=== PATIENT | male | born 1965 ===

== ENCOUNTER 2016-04-04 10:13 | Inpatient (IN) | payer SELFPAY ==
[2016-04-04] MEDS ORDERED: PROPOFOL/EMULSION 1,000 MG/100 ML BOTTLE IV ONE (13:29)
[2016-04-04] MEDS: fentaNYL/NACL 100 ML IV SCH (13:40)
[2016-04-04] MEDS: PROPOFOL/EMULSION 100 ML IV SCH ×4 (13:40→23:35)
[2016-04-04] MEDS ORDERED: fentanYL/NACL/100 ML BAG IV ONE (13:45)
[2016-04-04] MEDS ORDERED: HALOPERIDOL LACT 5 MG/ML INJ IVP PRN (13:55)
[2016-04-04] MEDS ORDERED: LORazepam 2 MG/ML INJ IVP PRN (13:55)
[2016-04-04] MEDS ORDERED: ENOXAPARIN 40 MG/0.4 ML SYR SC SCH (14:00)
[2016-04-04] MEDS: NS 1,000 ML IV SCH (14:00)
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
[2016-04-04] MEDS ORDERED: ONDANSETRON 4 MG/2 ML VIAL IVP PRN (14:47)
[2016-04-04] MEDS ORDERED: ACETAMINOPHEN 325 MG TAB PO PRN (14:47)
[2016-04-04] MEDS ORDERED: ENOXAPARIN 40 MG/0.4 ML SYR SC ONE (15:52)
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
[2016-04-04 18:35] LABS: COLOR YELLOW; LEUKOCYTE ESTERASE,URINE NEGATIVE (NEGATIVE); NITRITE,URINE NEGATIVE (NEGATIVE)
[2016-04-04 19:50] LABS: BASE EXCESS -1.7 mEq/L (-2.5-2.5); BICARBONATE 24 mEq/L (22-26); MEASURED OXYGEN SATURATION 93 % (92-95); PCO2 46 mmHg (34-38); PO2 72 mmHg (65-75); TCO2 25 mEq/L (23-27)
[2016-04-04 19:52] LABS: END TIDAL CO2 41; O2 CONCENTRATIION 25 % (0-100); P/F RATIO 288 RATIO; PATIENT RATE 15; PRESSURE SUPPORT 5; SIMV YES
[2016-04-04] MEDS: CHLORHEXIDINE GLUCONATE 15 ML UDL PO SCH (21:05)
[2016-04-04] MEDS: FAMOTIDINE 20 MG/NACL 50 ML IV SCH (21:05)
[2016-04-05] MEDS: PROPOFOL/EMULSION 100 ML IV SCH (03:40)
[2016-04-05] MEDS: NS 1,000 ML IV SCH ×2 (03:40→13:58)
[2016-04-05] MEDS: fentaNYL/NACL 100 ML IV SCH (03:40)
[2016-04-05 04:12] LABS: % IMMATURE GRANULYOCYTES 0.2 % (0.0-1.1); ABSOLUTE IMMATURE GRANULOCYTES 0.01 10^3/uL (0.00-0.10); ADD DIFF? NO; ADD MORPH? NO; ADD SCAN? NO; ATYPICAL LYMPHOCYTE FLAG 0 (0-99); FRAGMENT RBC FLAG 0 (0-99); HEMATOCRIT 38.2 % (40.0-51.0); HEMOGLOBIN 11.5 g/dL (13.7-17.5); LEFT SHIFT FLG 0 (0-99); LIPEMIA HEMOLYSIS FLAG 80 (0-99); MEAN CELL HEMOGLOBIN 24.2 pg (27.9-34.1); MEAN CELL HEMOGLOBIN CONCENTR. 30.1 g/dL (32.4-36.7); MEAN CELL VOLUME 80.3 fL (81.5-99.8); PLATELET CLUMPS FLAG 0 (0-99); PLATELET COUNT 134 10^3/uL (150-400); RED BLOOD CELL COUNT 4.76 10^6/uL (4.40-6.38); RED CELL DISTRIBUTION WIDTH 12.5 % (11.5-15.2)
[2016-04-05 04:23] LABS: BICARBONATE 23 mEq/L (22-26); MEASURED OXYGEN SATURATION 95 % (92-95); PCO2 40 mmHg (34-38); PO2 73 mmHg (65-75); TCO2 25 mEq/L (23-27)
[2016-04-05 04:24] LABS: END TIDAL CO2 33; O2 CONCENTRATIION 25 % (0-100); P/F RATIO 292 RATIO; SIMV YES
[2016-04-05 04:25] LABS: PATIENT RATE 14; PRESSURE SUPPORT 5
[2016-04-05 04:25] LABS: INR 1.14 (0.83-1.16); PROTIME(PATIENT) 14.5 SEC (12.0-15.0)
[2016-04-05 04:29] LABS: ALANINE AMINOTRANSFERASE 44 IU/L (21-72); ALBUMIN 3.2 g/dL (3.5-5.0); ALKALINE PHOSPHATASE 64 IU/L (38-126); ANION GAP 5 mEq/L (8-16); ASPARTATE AMINOTRANSFERASE 55 IU/L (17-59); BILIRUBIN,TOTAL 0.9 mg/dL (0.1-1.4); BILIRUBIN-CONJUGATED 0.6 mg/dL (0.0-0.5); BILIRUBIN-UNCONJUGATED 0.3 mg/dL (0.0-1.1); CALCIUM 8.2 mg/dL (8.5-10.4); CARBON DIOXIDE 27 mEq/l (22-31); CHLORIDE 111 mEq/L (97-110); CREATININE 1.1 mg/dL (0.7-1.3); GLOMERULAR FILTRATION RATE > 60; GLUCOSE 85 mg/dL (70-100); MAGNESIUM 2.1 mg/dL (1.6-2.3); POTASSIUM 3.8 mEq/L (3.5-5.2); SODIUM 143 mEq/L (134-144); TOTAL PROTEIN 6.3 g/dL (6.3-8.2)
[2016-04-05 05:41] LABS: CK-MB INTERPRETATION NEGATIVE (NEGATIVE)
--- NOTE | 2016-04-05 08:25 | PDINTPN ---
Contact Center Team Lead Progress Note Assessment/Plan: Assessment: * respiratory failure with hypoxia * altered mental status with violent behavior * sedation * dvt prophylaxis * gi prophylaxis * nutrition * Plan: * respiratory failure with hypoxia- stable on SIMV with minimal support. If mental status clears, he should extubate without difficulty. Titrate sedation then wean on 5/5 for 30 min as tolerated. * altered mental status- not clear source, tox screen, LP, head CT all negative. BAL normal. Unclear if underlying psych d/o * sedation- dc fentanyl, add precedex and wean propofol as tolerated. * dvt- scds in place * GI- PPI * 04/05/16 04/05/16 08:28 Objective: Vital Signs Temp Pulse Resp BP Pulse Ox 38.4 C H 89 10 L 120/69 99 04/05/16 07:00 04/05/16 07:00 04/05/16 07:00 04/05/16 07:00 04/05/16 07:00 Laboratory Results 04/05/16 04:00 04/05/16 04:00 04/04/16 04/05/16 04/06/16 05:59 05:59 05:59 Intake Total 1898 Output Total 1350 Balance 548 PT 14.5 SEC (12.0-15.0) 04/05/16 04:00 INR 1.14 (0.83-1.16) 04/05/16 04:00 - Time Spent With Patient Time Spent With Patient: critical care time 30 minutes from [id number] Physical Exam - Physical Exam General Appearance: WD/WN, no apparent distress, No alert (sedated) EENT: ET tube, other (pinpoint pupils) Neck: supple, normal inspection Respiratory: lungs clear Cardiac/Chest: regular rate, rhythm Peripheral Pulses: 2+: dorsalis-pedis (R), dorsalis-pedis (L) Abdomen: normal bowel sounds, non-tender, soft Skin: normal color, warm/dry Lymphatic: no adenopathy Extremities: non-tender, normal inspection Neuro/Psych: no motor/sensory deficits, other (seadted) ICD10 Worksheet Patient Problems: Problems Problem Status Diagnosed Altered mental status Acute - ICD10 Problem Qualifiers (1) Altered mental status
--- NOTE | 2016-04-05 08:39 | DX ---
Portable Chest, Single View 6:10 AM Indication: Intubated. Comparison: None. Findings: The ET tube is well-positioned with the tip 4.5 cm superior to the bernarda. Esophagogastric tube is present with the tip extending off the inferior margin of the film into the stomach. Lungs ar e clear except for minimal bibasilar atelectasis. No pneumothorax, edema, or confluent consolidation. Heart size normal. Impression: 1. ET tube well-positioned. 2. Minimal bibasilar atelectasis. Otherwise, clear lungs.
--- NOTE | 2016-04-05 08:43 | CPEKG ---
Heart Rate: 105 RR Interval: 571 P-R Interval: 160 QRSD Interval: 74 QT Interval: 304 QTC Interval: 402 P Des Arc: 76 QRS Des Arc: 50 T Wave Des Arc: 43 EKG Severity - OTHERWISE NORMAL ECG - EKG Impression: SINUS TACHYCARDIA Electronically Signed By: Donta Paris 05-Apr-2016 10:08:36
[2016-04-05] MEDS: CHLORHEXIDINE GLUCONATE 15 ML UDL PO SCH ×2 (08:56→21:08)
[2016-04-05] MEDS: FAMOTIDINE 20 MG/NACL 50 ML IV SCH ×2 (08:56→21:08)
[2016-04-05] MEDS: NICOTINE 21 MG/24 HR PATCH TD SCH (08:57)
[2016-04-05] MEDS: ENOXAPARIN 40 MG/0.4 ML SYR SC SCH (08:57)
[2016-04-05] MEDS ORDERED: DEXMEDETOMIDINE HCL 400 MCG in NS 100 ML IV SCH (09:00)
--- NOTE | 2016-04-05 14:38 | HOSPPROG ---
Hospitalist Progress Note Assessment/Plan: * acute respiratory failure * intubated for severe agitation at [facility] * hopefully can extubate * fever * chest x-ray and UA are negative blood cultures are pending * holding on antibiotics * questionable psych disorder versus substance abuse * need to clarify when extubated Subjective: sedated on vent Objective: Vital Signs Temp Pulse Resp BP Pulse Ox 39.6 C H 94 18 119/73 96 04/05/16 10:00 04/05/16 11:05 04/05/16 11:05 04/05/16 09:00 04/05/16 11:05 Laboratory Results 04/05/16 04:00 04/05/16 04:00 04/04/16 04/05/16 04/06/16 05:59 05:59 05:59 Intake Total 1898 Output Total 1350 Balance 548 PT 14.5 SEC (12.0-15.0) 04/05/16 04:00 INR 1.14 (0.83-1.16) 04/05/16 04:00 - Physical Exam Constitutional: no apparent distress, appears nourished, not in pain Ears, Nose, Mouth, Throat: moist mucous membranes Cardiovascular: regular rate and rhythym, no murmur, rub, or gallop Respiratory: no respiratory distress, no rales or rhonchi, clear to auscultation Skin: warm Neurologic: other ( sedated) Psychiatric: other ICD10 Worksheet Patient Problems: Problems Problem Status Diagnosed Altered mental status Acute
[2016-04-05 15:10] LABS: CK-MB INTERPRETATION NEGATIVE (NEGATIVE)
[2016-04-05 15:12] LABS: CREATINE KINASE-MB FRACTION 5.85 ng/mL (0-3.19)
[2016-04-05] MEDS ORDERED: NS 1,000 ML IV SCH (16:45)
[2016-04-06 00:18] VITALS: O2SAT 96
[2016-04-06 04:46] VITALS: TEMP 99.5
[2016-04-06 05:03] LABS: % IMMATURE GRANULYOCYTES 0.2 % (0.0-1.1); ABSOLUTE IMMATURE GRANULOCYTES 0.02 10^3/uL (0.00-0.10); ADD DIFF? NO; ADD MORPH? NO; ADD SCAN? NO; ATYPICAL LYMPHOCYTE FLAG 10 (0-99); FRAGMENT RBC FLAG 0 (0-99); HEMATOCRIT 36.9 % (40.0-51.0); HEMOGLOBIN 11.4 g/dL (13.7-17.5); LEFT SHIFT FLG 0 (0-99); LIPEMIA HEMOLYSIS FLAG 80 (0-99); MEAN CELL HEMOGLOBIN 24.6 pg (27.9-34.1); MEAN CELL HEMOGLOBIN CONCENTR. 30.9 g/dL (32.4-36.7); MEAN CELL VOLUME 79.5 fL (81.5-99.8); MEAN PLATELET VOLUME 11.6 fL (8.7-11.7); PLATELET CLUMPS FLAG 50 (0-99); PLATELET COUNT 143 10^3/uL (150-400); RED BLOOD CELL COUNT 4.64 10^6/uL (4.40-6.38); RED CELL DISTRIBUTION WIDTH 12.5 % (11.5-15.2)
[2016-04-06 05:11] LABS: ANION GAP 8 mEq/L (8-16); CALCIUM 8.1 mg/dL (8.5-10.4); CARBON DIOXIDE 23 mEq/l (22-31); CHLORIDE 110 mEq/L (97-110); CREATININE 1.1 mg/dL (0.7-1.3); GLOMERULAR FILTRATION RATE > 60; GLUCOSE 76 mg/dL (70-100); POTASSIUM 3.9 mEq/L (3.5-5.2); SODIUM 141 mEq/L (134-144)
[2016-04-06 05:34] LABS: CK-MB INTERPRETATION NEGATIVE (NEGATIVE); CREATINE KINASE-MB FRACTION 2.87 ng/mL (0-3.19)
[2016-04-06 06:28] VITALS: BP 145/67; PULSE 96; RESP 22
[2016-04-06] MEDS: NICOTINE 21 MG/24 HR PATCH TD SCH (09:14)
[2016-04-06] MEDS: FAMOTIDINE 20 MG/NACL 50 ML IV SCH (09:14)
[2016-04-06] MEDS: ENOXAPARIN 40 MG/0.4 ML SYR SC SCH (09:14)
[2016-04-06] MEDS: CHLORHEXIDINE GLUCONATE 15 ML UDL PO SCH (09:14)
--- NOTE | 2016-04-06 09:25 | DX ---
Portable Chest at 605 hours History: Respiratory distress, recently extubated. Comparison: Portable chest April 05, 2016. Findings: The patient has been extubated. Lung volumes are low with mild peribronchial thickening and slight increase in mild basilar atelectasis. There is no pneumothorax or pleural effusion. Heart siz e is normal. The bones are normal. Impression: Hypoventilatory chest with slight increase in basilar atelectasis.
--- NOTE | 2016-04-06 11:02 | PDIAF ---
- Diagnosis Diagnosis: agitation Code Status: Full Code - Medication Management Discharge Medications: Medications to Continue on Transfer NK [No Known Home Meds] 04/05/16 [Last Taken Unknown] Discharge Medications: Refer to the Discharge Home Medication list for PRN reason. - Orders Services needed: Registered Nurse Diet Recommendation: no restrictions on diet Diet Texture: Dysphagia 1 - Pureed, No Oral Liquids, Meds Whole in Puree
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
== END 2016-04-06 14:31 | disposition home or self-care (01) | DRG 947 ==
LOC: F2N 13:28 → OBSVTOIN 14:44 → EEVIPCON 14:44
PROVIDERS: ADMIT Internal Medicine; ATTEND Hospitalist
PROC: 5A1945Z Respiratory Ventilation, 24-96 Consecutive Hours (ICD-10-PCS; principal; 2016-04-04)
DX: R41.82 Altered mental status, unspecified (principal); J96.01 Acute respiratory failure with hypoxia; R50.9 Fever, unspecified; N17.9 Acute kidney failure, unspecified; F17.200 Nicotine dependence, unspecified, uncomplicated
CPT/HCPCS: 92526-GN; 92610-GN; J1650; J2704; J3010